=== PATIENT | female | born 1970 | race Caucasian/White ===

== ENCOUNTER 2025-01-01 09:12 | Emergency (ER) | payer BC, SELFPAY ==
[2025-01-01 09:16] VITALS: BP 192/96
[2025-01-01 09:33] LABS: % Basophils 0.5 % (0-2); % Eosinophils 1.1 % (0-6); % Immature Granulocytes 0.5 % (0-0.5); % Lymphocytes 22.1 % (20.5-51.1); % Monocytes 4.6 % (1.7-9.3); % Neutrophils 71.2 % (42.2-75.2); Absolute Eosinophils 0.1 10^3/uL (0-0.7); Absolute Lymphocytes 1.9 10^3/uL (1.2-3.4); Absolute Monocytes 0.4 10^3/uL (0.1-0.6); Hematocrit 43.8 % (37.0-47.0); Mean Corp Hgb Conc. 34.2 g/dL (33.0-37.0); Mean Corpuscular Hgb 30.5 pg (27.0-31.0); Mean Corpuscular Volume 89.2 fL (81.0-99.0); Nucleated Red Blood Cells % 0 %; Platelet Count 240 10^3/uL (130-400); Red Blood Cell Count 4.91 10^6/uL (4.20-5.40); Red Cell Dist. Width 12.7 % (11.5-14.5); White Blood Cell Count 8.4 10^3/uL (4.8-10.8)
[2025-01-01 09:46] LABS: HCG, Serum Qualitative Screen Negative
[2025-01-01 09:49] LABS: ALT (SGPT) 32 U/L (0-35); AST (SGOT) 27 U/L (14-36); Albumin 4.4 g/dl (3.5-5.0); Alkaline Phosphatase 68 U/L (38-126); Blood Urea Nitrogen 14 mg/dl (7-17); Calcium 9.6 mg/dl (8.4-10.2); Carbon Dioxide 28 mmol/L (22-30); Chloride 105 mmol/L (98-107); Glucose 106 mg/dl (70-99); Potassium 3.8 mmol/L (3.5-5.1); Sodium 141 mmol/L (135-145); Total Bilirubin 0.6 mg/dl (0.2-1.3); Total Protein 6.9 g/dl (6.3-8.2); eGFR > 60.00
[2025-01-01 09:58] LABS: Troponin I < 0.012 ng/ml
--- NOTE | 2025-01-01 10:07 | ED.GENMED ---
History of Present Illness
General
Chief Complaint: Chest Pain
Time Seen by Provider: 01/01/25 10:06
History of Present Illness
History of Present Illness:
TIME OF INITIAL ENCOUNTER: 10:10 AM
HPI: Patient presents with chest pain. This started yesterday morning. When she had a bowel movement she started feeling somewhat better but the pain was persisting. At times it would radiate toward the proximal aspect of the left upper extremity
and into her back. When she exerts herself, she has no increase in symptoms. She did not have any worsening when she worked out this morning. She was not diaphoretic and reports no shortness of breath. She also questions if some of her symptoms
could be related to what she eats other symptoms started after she had custard for the first time in many years.
EXAM:
GENERAL: Well appearing in no distress
HEENT: Moist oral mucosa
CARDIOVASCULAR: No murmurs, normal heart rate, regular rhythm, No chest wall tenderness
PULMONARY: No respiratory distress, breath sounds are clear and equal
ABDOMEN: Soft with no peritoneal signs, no tenderness
NEUROLOGIC: Excellent strength all extremities, no coordination deficits
PSYCHIATRIC: Appropriate mental status, normal insight and judgement
EXTREMITIES: Nontender, no edema, moves all extremities equally
SKIN: No rash, no lesions
NUMBER AND COMPLEXITY OF PROBLEMS ADDRESSED AT THE ENCOUNTER
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
� Acute Exacerbation and/or Progression of Chronic Illness: This is an acute problem
� Differential Diagnosis includes: GERD, gastritis, ACS very unlikely, pneumothorax unlikely
AMOUNT AND/OR COMPLEXITY OF DATA TO BE REVIEWED AND ANALYZED
� I performed an independent evaluation of and my interpretation is:
EKG: Sinus 84, nonspecific ST abnormality, no old to compare
CT:
X-rays: Chest x-ray shows no acute abnormality
Laboratory Studies: CBC normal, chemistries unremarkable, troponin less than 0.012, hCG negative
Other:
� Review of other/old records: The patient was seen in the Emergency Department 2021 related to dental pain
� Clinical information was obtained by an independent historian: I spoke to at bedside lives at home
� Prescriptions/Medications Considered but not given:
� Further testing considered but not performed:
RISK OF COMPLICATIONS AND/OR MORBIDITY OR MORTALITY OF PATIENT MANAGEMENT
� Social determinants of health affecting care:
� Discussion with other providers:
� Escalation of care including admission/observation vs risk of discharge considered: The patient presents with greater than 24 hours of left-sided chest discomfort. EKG and troponin unremarkable. Chest x-ray unremarkable. She
states that she had a normal calcium score with Dr. Marshall just a few months ago. We also talked about trying a PPI.
ANY OTHER UPDATES:
Past History
Past History
ED Past Medical History: Other (WPW)
ED Past Surgical History: Cardiac (Ablation for WPW)
Social History
Tobacco: Non-smoker
Alcohol: None
Drug: None
Personal:
Living: with family
Phy Exam
Physical Exam
Physical Exam:
See HPI
Scores
Heart Score for Chest Pain Patients
STEMI patient?: Not applicable
Course
Orders/Labs/Results
Orders:
Orders
01/01/25 09:14
Electrocardiogram (*1) Urgent
Reason for Study: Chest Pain
EKG- Treatment ONCE
01/01/25 09:20
Test Result ONCE
01/01/25 09:24
Complete Blood Count/With Diff Urgent
Comprehensive Metabolic Panel Urgent
HCG, Serum Qualitative Screen Urgent
Troponin I Urgent
01/01/25 10:16
CR Chest - 2 Views Urgent
Comment:
Reason For Exam: L CP
Abnormal Lab Results
01/01/25
09:24
Glucose 106 H mg/dl
(70-99)
01/01/25 09:24
01/01/25 09:24
Vital Signs
Initial and Last Documented VS:
Initial Vital Signs
Temp Pulse Resp BP Pulse Ox
36.6 C 93 18 192/96 98
01/01/25 09:16 01/01/25 09:16 01/01/25 09:16 01/01/25 09:16 01/01/25 09:16
Last Documented Vital Signs
Temp Pulse Resp BP Pulse Ox
36.6 C 93 18 192/96 98
01/01/25 09:16 01/01/25 09:16 01/01/25 09:16 01/01/25 09:16 01/01/25 09:16
*Critical Care Note
Total Time (30-74mins, 75-104mins- exclusive of procedures): Not Applicable
ED Attending Note
-
Portions of this chart may have been created with voice recognition software.� Occasional wrong word or��sound alike� substitutions may have occurred due to the inherent limitations of voice recognition software.
Discharge Plan
Departure
Referrals:
UNKNOWN - PT DOES,NOT KNOW [Family Provider] -
Interventions
Interventions:
*Risk Screen - Suicide Last Done: 01/01/25 09:16
*General Assessment Last Done: 01/01/25 09:16
*Neglect/Abuse Screening Last Done: 01/01/25 09:16
Discharge Date and Time
Print Language: ICELANDIC
[2025-01-01 10:11] VITALS: BP 157/90
== END 2025-01-01 11:10 | disposition home or self-care (01) ==
LOC: EMR 09:12
PROVIDERS: Emergency Medicine; EMERGENCY PHYSICIAN Emergency Medicine
DX: R07.9 Chest pain, unspecified (principal); Z86.79 Personal history of other diseases of the circulatory system
CPT/HCPCS: 99285; 71046; 80053; 84484; 84703; 85025; 93005